=== PATIENT | female | born 1975 | race Caucasian/White ===

== ENCOUNTER 2021-11-14 05:15 | Inpatient (IN) | payer BC ==
[2021-11-14] MEDS ORDERED: Scopolamine 1.5 MG Transdermal Patch TOP SCH (05:45)
[2021-11-14] MEDS ORDERED: Celecoxib 200 MG Cap PO ONE (05:45)
[2021-11-14] MEDS ORDERED: Acetaminophen 500 MG Tab PO ONE (05:45)
[2021-11-14] MEDS ORDERED: Dextrose 5%-Lactated Ringers 1,000 ML IV SCH ×2 (06:00→11:00)
[2021-11-14 06:31] LABS: HEMOGLOBIN A1C 7.8 % (4.5-6.2)
[2021-11-14] MEDS ORDERED: cefOXitin 2 GM Vial ONE (06:58)
[2021-11-14] MEDS ORDERED: Ondansetron 4 MG/2 ML SDV ONE (07:06)
[2021-11-14] MEDS ORDERED: fentaNYL 250 MCG/5 ML SDV ONE ×2 (07:06→07:43)
[2021-11-14] MEDS ORDERED: Neostigmine Methylsulfate 1 MG/ML 5 ML Syringe ONE (07:06)
[2021-11-14] MEDS ORDERED: Glycopyrrolate 0.2 MG/ML 5 ML MDV ONE (07:06)
[2021-11-14] MEDS ORDERED: Propofol 200 MG/20 ML SDV ONE (07:06)
[2021-11-14] MEDS ORDERED: Rocuronium 50 MG/5 ML Vial ONE (07:06)
[2021-11-14] MEDS ORDERED: Dexamethasone 4 MG/ML SDV ONE (07:06)
[2021-11-14] MEDS ORDERED: Succinylcholine 200 MG/10 ML MDV ONE (07:06)
[2021-11-14] MEDS ORDERED: Lactated Ringers 1,000 ML ONE (07:12)
[2021-11-14] MEDS ORDERED: cefOXitin 2 GM in Sodium Chloride 0.9% 50 ML IV ONE (07:15)
[2021-11-14] MEDS ORDERED: Ketamine 18 MG in Sodium Chloride 0.9% 19.82 ML IV SCH (07:30)
[2021-11-14] MEDS ORDERED: Ketamine 500 MG/5 ML MDV IV SCH (07:30)
[2021-11-14] MEDS ORDERED: Labetalol 20 MG/4 ML Syringe ONE (07:55)
[2021-11-14] MEDS ORDERED: Glucagon,Human Recombinant 1 MG Vial IM PRN ×2 (09:16→11:00)
[2021-11-14] MEDS ORDERED: 50% Dextrose in Water 50 ML Syringe IVPUSH PRN ×2 (09:16→11:00)
[2021-11-14] MEDS ORDERED: fentaNYL 50 MCG/ML SDV IVPUSH ONE ×2 (09:17→09:42)
[2021-11-14] MEDS ORDERED: hydrOXYzine HCL 100 MG/2 ML SDV IM ONE (09:17)
[2021-11-14] MEDS: Insulin Lispro 100 Unit/ML 3 ML KwikPen SUBCUT ONE ×2 (09:26→11:07)
[2021-11-14] MEDS ORDERED: Cyclobenzaprine 10 MG Tab PO PRN (10:47)
[2021-11-14] MEDS ORDERED: diphenhydrAMINE 50 MG/ML SDV IVPUSH PRN (11:00)
[2021-11-14] MEDS ORDERED: HYDROmorphone 1 MG/ML Syringe IV PRN (11:00)
[2021-11-14] MEDS ORDERED: hydrOXYzine HCL 100 MG/2 ML SDV IM PRN (11:00)
[2021-11-14] MEDS ORDERED: HYDROmorphone 0.5 MG/0.5 ML Syringe IVPUSH PRN (11:00)
[2021-11-14] MEDS ORDERED: traMADol 50 MG Tab PO PRN (11:00)
[2021-11-14] MEDS ORDERED: Acetaminophen 500 MG Tab PO PRN (11:00)
[2021-11-14] MEDS ORDERED: Labetalol 20 MG/4 ML Syringe IVPUSH PRN (11:00)
[2021-11-14] MEDS ORDERED: oxyCODONE 5 MG Tab PO PRN (11:00)
[2021-11-14] MEDS ORDERED: Ondansetron 4 MG/2 ML SDV IVPUSH PRN (11:00)
[2021-11-14] MEDS ORDERED: Metoclopramide 10 MG/2 ML SDV IVPUSH PRN (11:00)
[2021-11-14] MEDS: Lactated Ringers 1,000 ML IV SCH (11:02)
[2021-11-14] MEDS: Pantoprazole 40 MG Vial IVPUSH SCH (14:00)
[2021-11-14] MEDS: Acetaminophen 500 MG Tab PO SCH ×2 (14:00→22:33)
[2021-11-14] MEDS: cefOXitin 2 GM in Sodium Chloride 0.9% 50 ML IV SCH ×2 (14:00→19:59)
[2021-11-14] MEDS ORDERED: MVI, Adult with Vitamin K 10 ML, Thiamine 200 MG, Zinc/Copper/Manganese/Selenium 1 ML i... IV SCH ×4 (16:00)
[2021-11-14] MEDS: Insulin Lispro 100 Unit/ML 3 ML KwikPen SUBCUT SCH ×2 (17:42→22:33)
[2021-11-14] MEDS: Heparin Sodium 5,000 Units/ML Vial SUBCUT SCH (17:43)
[2021-11-14] MEDS: atorvaSTATin 10 MG Tab PO SCH (22:01)
[2021-11-15] MEDS: Lactated Ringers 1,000 ML IV SCH ×2 (00:04→09:27)
[2021-11-15] MEDS: cefOXitin 2 GM in Sodium Chloride 0.9% 50 ML IV SCH ×4 (03:16→19:53)
[2021-11-15] MEDS ORDERED: Iopamidol 612 MG/ML 50 ML SDV PO STA (03:38)
[2021-11-15] MEDS: Insulin Lispro 100 Unit/ML 3 ML KwikPen SUBCUT SCH ×4 (05:06→22:21)
[2021-11-15] MEDS: Heparin Sodium 5,000 Units/ML Vial SUBCUT SCH ×2 (05:07→17:00)
[2021-11-15] MEDS: Acetaminophen 500 MG Tab PO SCH ×3 (05:09→22:20)
[2021-11-15] MEDS ORDERED: Ondansetron 4 MG Tab.DIS PO PRN (07:14)
[2021-11-15] MEDS ORDERED: hydrOXYzine HCl 25 MG Tab PO PRN (07:15)
[2021-11-15] MEDS: Celecoxib 200 MG Cap PO SCH ×2 (09:12→21:00)
[2021-11-15] MEDS: Lisinopril 10 MG Tab PO SCH (09:15)
[2021-11-15] MEDS: SCOPOLAMINE PATCH CHECK TOP SCH (09:15)
[2021-11-15] MEDS: valACYclovir 1,000 MG Tab PO SCH (09:16)
[2021-11-15] MEDS: Pantoprazole 40 MG Vial IVPUSH SCH (14:01)
[2021-11-15] MEDS ORDERED: MVI, Adult with Vitamin K 10 ML, Thiamine 200 MG, Zinc/Copper/Manganese/Selenium 1 ML i... IV SCH ×4 (16:00)
[2021-11-15] MEDS: atorvaSTATin 10 MG Tab PO SCH (21:00)
[2021-11-16] MEDS: Lactated Ringers 1,000 ML IV SCH (03:19)
[2021-11-16] MEDS: Insulin Lispro 100 Unit/ML 3 ML KwikPen SUBCUT SCH ×2 (04:01→10:04)
[2021-11-16] MEDS: Heparin Sodium 5,000 Units/ML Vial SUBCUT SCH (05:16)
[2021-11-16] MEDS: Acetaminophen 500 MG Tab PO SCH ×2 (05:16→13:11)
[2021-11-16] MEDS ORDERED: Pantoprazole 40 MG Delayed-Release Granules 1 Packet PO SCH (07:30)
[2021-11-16] MEDS: Celecoxib 200 MG Cap PO SCH (08:54)
[2021-11-16] MEDS: SCOPOLAMINE PATCH CHECK TOP SCH (08:55)
[2021-11-16] MEDS: Lisinopril 10 MG Tab PO SCH (08:55)
[2021-11-16] MEDS: valACYclovir 1,000 MG Tab PO SCH (08:56)
[2021-11-16] MEDS ORDERED: Cyanocobalamin (Vitamin B12) 1,000 MCG/ML SDV IM ONE (09:00)
== END 2021-11-16 13:45 | disposition home or self-care (01) | DRG 403 ==
LOC: JP.SDS 05:15 → EDSTATUS 07:15 → JP.MS 10:17
PROVIDERS: ADMIT Surgery; ATTEND Physician Assistant Medical
PROC: 0D164ZA Bypass Stomach to Jejunum, Percutaneous Endoscopic Approach (ICD-10-PCS; principal; 2021-11-14)
PROC: 0FB24ZX Excision of Left Lobe Liver, Percutaneous Endoscopic Approach, Diagnostic (ICD-10-PCS; 2021-11-14)
PROC: 0BQT4ZZ Repair Diaphragm, Percutaneous Endoscopic Approach (ICD-10-PCS; 2021-11-14)
DX: E66.01 Morbid (severe) obesity due to excess calories (principal); R16.0 Hepatomegaly, not elsewhere classified; K44.9 Diaphragmatic hernia without obstruction or gangrene; I10 Essential (primary) hypertension; E11.9 Type 2 diabetes mellitus without complications; E78.5 Hyperlipidemia, unspecified; K21.9 Gastro-esophageal reflux disease without esophagitis; G47.33 Obstructive sleep apnea (adult) (pediatric); Z68.43 Body mass index [BMI] 50.0-59.9, adult; D16.9 Benign neoplasm of bone and articular cartilage, unspecified; Z79.899 Other long term (current) drug therapy
CPT/HCPCS: 36415; 74240; 74240-26; 80048; 82947; 83036; 83735; 84100; 84703; 86850; 86900; 86901; 88307; 88313; A9270-GY; C9113; J0171; J0330; J0694; J1100; J1170; J1644; J1815; J2405; J2704; J2710; J2795; J3010; J3410; J3411; J3420; J3490; J7120; J7121; Q9967